=== PATIENT | male | born 1960 | race Caucasian/White ===

== ENCOUNTER 2020-12-08 06:34 | Day surgery (SDC) | payer OTHER ==
[~2020-12-08] VITALS: Ht 183 cm; Wt 85.0 kg
[~2020-12-08 06:34] MED LIST: AMLODIPINE BESY10 MG PO; ASPIRIN EC81 MG PO; ATORVASTATIN CA40 MG PO; MELOXICAM15 MG PO; OMEPRAZOLE40 MG PO; VALSARTAN160 MG PO
[2020-12-08] MEDS ORDERED: PERCOCET 5-3251 EACH PO (06:48)
--- NOTE | 2020-12-08 15:56 | NUR ---
PT. REQUESTED A ROLLING WALKER FROM [facility]. PT. HAS AN APPT. WITH [facility]ER ON 12/10/20 @ 4:00 P.M.
[2020-12-09 05:58] LABS: BASOPHIL 0.1 % (0-2); EOSINOPHIL 0 % (0-5); HCT 35.6 % (42.0-52.0); HGB 12.3 g/dl (13.2-18.0); LYMPHOCYTE 8.9 % (15-48); MCH 32.4 pg (25.0-31.0); MCHC 34.6 g/dL (32.0-36.0); MCV 93.7 fL (78.0-100.0); MPV 9.9 fL (6.0-9.5); NEUTROPHIL 83.5 % (41-80); NRBC 0; PLT 252 K/uL (150-400); RDW 13.7 % (11.5-14.0); WBC 17.5 K/uL (4.0-10.5)
[2020-12-09 06:19] LABS: BUN/CREAT RATIO (CALC) 19.4 RATIO; CREATININE 0.72 mg/dL (0.67-1.17); POTASSIUM 4.3 mmol/L (3.5-5.1)
[2020-12-09] MEDS ORDERED: ULTRA-LIGHT RO1 EACH XX (08:45)
[2020-12-09] MEDS ORDERED: FEOSOL325 MG PO (08:47)
== END 2020-12-09 11:50 | disposition home or self-care (01) ==
LOC: FMS 06:34 → FAS 06:34 → FMS 09:26 → FAS 10:00
PROVIDERS: Orthopaedic Surgery
DX: M17.12 Unilateral primary osteoarthritis, left knee (principal); I10 Essential (primary) hypertension; K21.9 Gastro-esophageal reflux disease without esophagitis; F17.200 Nicotine dependence, unspecified, uncomplicated; Z79.82 Long term (current) use of aspirin; I49.3 Ventricular premature depolarization; Z96.651 Presence of right artificial knee joint
CPT/HCPCS: 36415; 73560; 80048; 85025; 86850; 86900; 86901; 94010; 94760; 94762; 97110; 97162; 97165; 97530-GP; 97535; C1713; C1776; J0171; J0697; J1100; J1170; J1885; J2250; J2270; J2405; J2704; J2795; J3010; J7120